=== PATIENT | female | born 1985 | race Caucasian/White ===

== ENCOUNTER 2020-11-06 06:28 | Inpatient (IN) ==
[2020-11-06] MEDS ORDERED: Buffered Lidocaine 1% SYRIN 1 ml INTRADERM ONE (07:22)
[2020-11-06] MEDS ORDERED: Lactated Ringers 1000 ml BAG 1,000 ML IV ONE ×2 (07:22→08:43)
[2020-11-06 07:54] LABS: Hematocrit 39 % (35-47); Hemoglobin 13.2 g/dL (12.0-16.0); Mean Corpuscular HGB Conc 34 g/dL (31-36); Mean Corpuscular Hemoglobin 30 pg (27-31); Mean Corpuscular Volume 90 fL (80-97); Platelet Count 193 10^3/uL (150-450); Red Blood Count 4.34 10^6 /uL (3.70-4.87); Red Cell Distribution Width 14 % (10-15); White Blood Count 24.2 10^3/uL (3.5-10.8)
[2020-11-06] MEDS ORDERED: Lactated Ringers 1000 ml BAG 1,000 ML IV SCH ×3 (08:00→18:00)
[2020-11-06] MEDS ORDERED: OBEPIDURAL 250 ML EPIDURAL ONE (08:03)
[2020-11-06 08:28] LABS: ABS Basophils 0.1 10^3/ul (0-0.2); ABS Eosinophils 0.1 10^3/ul (0-0.6); ABS Lymphocytes 1.8 10^3/ul (1.0-4.8); ABS Monocytes 1.3 10^3/ul (0-0.8); Eosinophil % 0.4 %; Lymphocyte % 7.5 %
[2020-11-06] MEDS ORDERED: Sodium Citrate/Citric Acid LIQ 15 ML UDC PO PRN (08:43)
[2020-11-06 08:49] LABS: Urine Benzodiazepine Screen None Detected (None Detect); Urine Cannabinoids Screen None Detected (None Detect); Urine Opiates Screen None Detected (None Detect)
[2020-11-06] MEDS ORDERED: OBEPIDURAL 250 ML EPIDURAL SCH (09:00)
[2020-11-06 09:04] LABS: Urine Appearance Clear; Urine Bilirubin Negative (Negative); Urine Blood Negative (Negative); Urine Color Yellow; Urine Glucose Negative (Negative); Urine Ketones 2+ (Negative); Urine Nitrite Negative (Negative); Urine Protein Negative (Negative); Urine Specific Gravity 1.018 (1.002-1.030); Urine Urobilinogen Negative (Negative)
[2020-11-06] MEDS ORDERED: Oxytocin in LR 20 UNITS/1,000 ML BAG IVPB ONE (16:02)
[2020-11-06] MEDS ORDERED: Dibucaine 1% OINT 28.35 GM TUBE PR PRN (17:33)
[2020-11-06] MEDS ORDERED: Witch Hazel PAD JAR TOPICAL PRN (17:33)
[2020-11-06] MEDS ORDERED: Glycerin ADULT 2.4 gm SUPP PR PRN (17:33)
[2020-11-06] MEDS ORDERED: Oxytocin in LR 20 UNITS/1,000 ML BAG IVPB SCH (18:00)
[2020-11-06] MEDS ORDERED: Famotidine SUSP ORALSYR 8 MG/ML PO PRN (20:22)
[2020-11-06] MEDS: Ibuprofen ADULT LIQ 600 MG/30 ML UDC PO SCH (21:07)
[2020-11-06] MEDS: Docusate LIQ 100 MG/10 ML UDC PO SCH (21:08)
[2020-11-06] MEDS ORDERED: RHO D Immune Globulin (HUMAN) 300 MCG = 1,500 I.U. INJ IM PRN (21:31)
[2020-11-07] MEDS: Ibuprofen ADULT LIQ 600 MG/30 ML UDC PO SCH ×3 (03:23→17:36)
[2020-11-07 06:32] LABS: Hematocrit 31 % (35-47); Hemoglobin 10.4 g/dL (12.0-16.0); Mean Corpuscular HGB Conc 33 g/dL (31-36); Mean Corpuscular Hemoglobin 31 pg (27-31); Mean Corpuscular Volume 93 fL (80-97); Mean Platelet Volume 9.4 fL (7.4-10.4); Platelet Count 162 10^3/uL (150-450); Red Blood Count 3.39 10^6 /uL (3.70-4.87); Red Cell Distribution Width 14 % (10-15); White Blood Count 22.3 10^3/uL (3.5-10.8)
[2020-11-07 06:41] LABS: ABS Basophils 0.1 10^3/ul (0-0.2); ABS Eosinophils 0.2 10^3/ul (0-0.6); ABS Lymphocytes 2.6 10^3/ul (1.0-4.8); ABS Monocytes 1.6 10^3/ul (0-0.8); ABS Neutrophils 17.8 10^3/ul (1.5-7.7); Eosinophil % 1.1 %; Lymphocyte % 11.5 %
[2020-11-07] MEDS: Docusate LIQ 100 MG/10 ML UDC PO SCH ×3 (11:04→20:55)
[2020-11-07] MEDS ORDERED: RHO D Immune Globulin (HUMAN) 300 MCG = 1,500 I.U. INJ IM ONE (17:28)
[2020-11-08] MEDS: Ibuprofen ADULT LIQ 600 MG/30 ML UDC PO SCH ×3 (00:02→12:53)
[2020-11-08] MEDS: Docusate LIQ 100 MG/10 ML UDC PO SCH (12:53)
[2020-11-08 13:47] VITALS: BP 124/66
== END 2020-11-08 14:09 | disposition home or self-care (01) | DRG 560 ==
LOC: MCHOBOUT 06:28 → MCHOB 07:21
PROVIDERS: ADMIT Midwife; ATTEND Midwife